=== PATIENT | female | born 1960 | race Caucasian/White ===

== ENCOUNTER 2022-03-14 18:36 | Emergency (ER) | payer MEDICAID ==
[~2022-03-14] VITALS: Ht 157.5 cm; Wt 95.5 kg
[~2022-03-14 18:36] MED LIST: IBUP-1984 PO; LOP25T PO; NO HOME MEDS
--- NOTE | 2022-03-14 19:02 | NUR ---
SPOKE TO DR HURLEY CONCERNING PT'S BP AT TRIAGE. SHE IS AWARE. PT DENIES ANY SOB, CP, HEADACHE, NAUSEA, VOMITING OR EMESIS. UNIT IS SHORT STAFFED AND THERE ARE NO BEDS AVAILABLE YET.
[2022-03-14 19:27] LABS: BASOPHILS # (AUTO) 0.1 X10'3 (0-0.2); BASOPHILS % (AUTO) 0.9 % (0-1); EOSINOPHILS # (AUTO) 0.3 X10'3 (0-0.9); EOSINOPHILS % (AUTO) 3.3 % (0-6); HEMATOCRIT 42.3 % (35.0-45.0); LYMPHOCYTES # (AUTO) 2.9 X10'3 (1.1-4.8); LYMPHOCYTES % (AUTO) 32.1 % (21-51); MEAN CORPUSCULAR HEMOGLOBIN 27.9 PG (27.0-31.0); MEAN CORPUSCULAR HGB CONC 33.1 g/dL (33.0-36.5); MEAN CORPUSCULAR VOLUME 84.3 FL (78-98); MONOCYTES # (AUTO) 0.8 X10'3 (0-0.9); MONOCYTES % (AUTO) 9.2 % (2-12); NEUTROPHILS # (AUTO) 4.9 X10'3 (1.8-7.7); NEUTROPHILS % (AUTO) 54.5 % (42-75); PLATELET COUNT 312 X10'3 (140-440); RED BLOOD COUNT 5.02 X10'6 (4.20-5.60)
[2022-03-14 19:40] LABS: D-DIMER 1.47 MG/L FEU (0-0.50)
[2022-03-14 19:45] LABS: ALANINE AMINOTRANSFERASE 36 U/L (12-78); ALKALINE PHOSPHATASE 87 IU/L (46-116); ANION GAP 9 (8-16); ASPARTATE AMINO TRANSFERASE 23 U/L (10-37); BILIRUBIN,TOTAL 0.2 MG/DL (0.1-1.0); BLOOD UREA NITROGEN 15 MG/DL (7-18); BUN/CREATININE RATIO 20.5 (6.6-38.0); CALCIUM 8.9 MG/DL (8.5-10.1); CHLORIDE 105 MMOL/L (99-107); CREATININE 0.73 MG/DL (0.40-0.90); GLUCOSE 137 MG/DL (70-104); POTASSIUM 3.6 MMOL/L (3.5-5.1); SODIUM 141 MMOL/L (135-145); TOTAL CARBON DIOXIDE 27.5 MMOL/L (24-32); TOTAL PROTEIN 8.1 G/DL (6.4-8.2); eGFR 82 ML/MIN
[2022-03-14 21:22] VITALS: BP 235/118
--- NOTE | 2022-03-14 21:22 | NUR ---
PT STILL WAITING IN LOBBY. RE-CHECKED VITALS. PT STILL DENIES ANY HEADACHE, DIZZIESS, CHEST PAIN, SOB, NAUSEA, OR VOMITING.
== END 2022-03-15 00:26 | disposition left against medical advice (07) ==
LOC: ER 18:37
DX: S81.809A Unspecified open wound, unspecified lower leg, initial encounter (principal); Z53.21 Procedure and treatment not carried out due to patient leaving prior to being seen by health care provider; X58.XXXA Exposure to other specified factors, initial encounter; Y93.89 Activity, other specified; Y92.89 Other specified places as the place of occurrence of the external cause; Y99.8 Other external cause status
CPT/HCPCS: 36415; 80053; 83605; 84145; 85025; 85379; 87040